=== PATIENT | female | born 1955 | race Caucasian/White ===

== ENCOUNTER → 2022-03-06 | Outpatient (CLI) | payer MEDICARE, OTHER | LOC: KOH-I 11:26 | DX: S92.002D Unspecified fracture of left calcaneus, subsequent encounter for fracture with routine healing (principal) | CPT/HCPCS: 73630; 73650 ==

== ENCOUNTER → 2022-04-05 | Outpatient (CLI) | payer MEDICARE, OTHER | LOC: KOH-I 10:39 | DX: S92.002A Unspecified fracture of left calcaneus, initial encounter for closed fracture (principal) | CPT/HCPCS: 73630; 73650 ==

== ENCOUNTER → 2022-07-03 | Outpatient (CLI) | payer MEDICARE | LOC: KOH-I 13:00 | DX: Z87.81 Personal history of (healed) traumatic fracture (principal) | CPT/HCPCS: 73630; 73650 ==

== ENCOUNTER → 2022-07-31 | Outpatient (CLI) | payer MEDICARE | LOC: KOH-I 09:50 | DX: Z87.81 Personal history of (healed) traumatic fracture (principal) | CPT/HCPCS: 73630 ==